=== PATIENT | female | born 1995 | race Caucasian/White ===

== ENCOUNTER 2017-04-26 14:07 | Observation (INO) | payer BC, OTHER ==
[2017-04-26 14:26] VITALS: BMI 24.8
[2017-04-26] MEDS ORDERED: SODIUM CHLORIDE 1,000 ML IV SCH (14:45)
--- NOTE | 2017-04-26 14:47 | PDOC ---
History of Present Illness <Bravo Larry - Last Filed: 04/26/17 14:44> - General History Source: Patient Exam Limitations: No Limitations - History of Present Illness Initial Comments: 04/26/17 15:42 The patient is a 21 year old female, with a significant past medical history of Asthma, COPD, Anxiety, who presents to the emergency department with L arm weakness, L arm numbness and headache since 7 PM yesterday. Patient states her L arm weakness and numbness has been ongoing for the past year. Patient notes these episodes of weakness is intermittent, occurs in 15-30 minute intervals and is relieved with time. However today her weakness has progressively worsened as she is unable to move her L arm. Patient denies any injury or trauma to the arm. Patient also reports bitemporal headache associated with sound sensitivity. Patient denies nausea, vomiting. Patient presents to the ED today for further evaluation. She denies chest pain or dizziness. She denies fever, chills, abdominal pain, diarrhea or constipation. She denies dysuria, frequency, urgency or hematuria. Allergies: shellfish Past surgical history: None Social history: Current everyday smoker PCP: None <Flavia Harrison - Last Filed: 04/26/17 18:10> - General Chief Complaint: CVA/TIA Stated Complaint: LEFT ARM NUMBNESS Time Seen by Provider: 04/26/17 14:37 Past History - Past Medical History Asthma: Yes HTN: Yes Psychiatric Problems: Yes (anxiety) - Psycho/Social/Smoking Cessation Hx Anxiety: No Suicidal Ideation: No Smoking History: Current every day smoker Have you smoked in the past 12 months: Yes Number of Cigarettes Smoked Daily: 5 Information on smoking cessation initiated: No Hx Alcohol Use: No Drug/Substance Use Hx: No Substance Use Type: None <Bravo Larry - Last Filed: 04/26/17 14:44> <Flavia Harrison - Last Filed: 04/26/17 18:10> - Past Medical History Allergies/Adverse Reactions: Allergies Allergy/AdvReac Type Severity Reaction Status Date / Time shellfish derived Allergy Severe Difficulty Verified 04/26/17 14:27 Breathing Home Medications: Ambulatory Orders Metoprolol Succinate [Toprol Xl -] 25 mg PO DAILY #30 tab.sr.24h 08/20/16 Review of Systems - Review of Systems Able to Perform ROS?: Yes Comments:: 04/26/17 15:42 GENERAL/CONSTITUTIONAL: No fever or chills. No weakness. HEAD, EYES, EARS, NOSE AND THROAT: No change in vision. No ear pain or discharge. No sore throat. CARDIOVASCULAR: No chest pain or shortness of breath. RESPIRATORY: No cough, wheezing, or hemoptysis. GASTROINTESTINAL: No nausea, vomiting, diarrhea or constipation. GENITOURINARY: No dysuria, frequency, or change in urination. MUSCULOSKELETAL: No joint or muscle swelling or pain. No neck or back pain. SKIN: No rash NEUROLOGIC: +L arm weakness. +L arm numbness. +headache. No vertigo, loss of consciousness, or change in strength/sensation. ENDOCRINE: No increased thirst. No abnormal weight change. HEMATOLOGIC/LYMPHATIC: No anemia, easy bleeding, or history of blood clots. ALLERGIC/IMMUNOLOGIC: No hives or skin allergy. <Flavia Harrison - Last Filed: 04/26/17 18:10> *Physical Exam - Vital Signs Last Vital Signs Temp Pulse Resp BP Pulse Ox 98.4 F 80 18 160/106 100 04/26/17 14:22 04/26/17 14:22 04/26/17 14:22 04/26/17 14:22 04/26/17 14:22 <Bravo Larry - Last Filed: 04/26/17 14:44> - Vital Signs Last Vital Signs Temp Pulse Resp BP Pulse Ox 98.4 F 80 18 160/106 100 04/26/17 14:22 04/26/17 14:22 04/26/17 14:22 04/26/17 14:22 04/26/17 14:22 - Physical Exam Comments: 04/26/17 15:42 GENERAL: Awake, alert, and fully oriented, in no acute distress. +Patient laughed and giggled throughout entire exam. HEAD: No signs of trauma EYES: PERRLA, EOMI, sclera anicteric, conjunctiva clear ENT: Auricles normal inspection, hearing grossly normal, nares patent, oropharynx clear without exudates. Moist mucosa NECK: Normal ROM, supple, no lymphadenopathy, JVD, or masses LUNGS: Breath sounds equal, clear to auscultation bilaterally. No wheezes, and no crackles HEART: Regular rate and rhythm, normal S1 and S2, no murmurs, rubs or gallops ABDOMEN: Soft, nontender, normoactive bowel sounds. No guarding, no rebound. No masses EXTREMITIES: Normal range of motion, no edema. No clubbing or cyanosis. No cords, erythema, or tenderness NEUROLOGICAL: Cranial nerves II through XII grossly intact. Normal speech, normal gait. Stroke scale is 1. + L arm drift. Moves L arm not coordinated SKIN: Warm, Dry, normal turgor, no rashes or lesions noted. <Flavia Harrison - Last Filed: 04/26/17 18:10> NIH Stroke Scale - Last Known Well Date/Time & Onset Date Last Known Well: 04/25/17 Time Last Known Well: 19:00 - Initial Evaluation Level of consciousness: Alert Ask patient the month and their age: Answers both correctly Ask patient to open & close eyes; make fist and let go: Obeys both correctly Best gaze (horizontal eye movement): Normal Visual field testing: No visual field loss Facial paresis (Show teeth/raise eyebrows/close eyes tight): Normal symmetrical movement Motor Function: Left Arm: Drift Motor Function: Right Arm: Normal (extends arm 90 (or 45) degrees for 10 seconds without drift Motor Function: Left Leg: Normal (extends leg 30 degrees for 5 seconds without drift) Motor Function: Right Leg: Normal (extends leg 30 degrees for 5 seconds without drift) Limb Ataxia: No ataxia Sensory(Use pinprick test arms,legs,trunk,face/side to side): Normal Best language (Describe picture, name items, read sentences): No Aphasia Dysarthria (read several words): Normal articulation Extinction and Inattention: No abnormality - Total Score NIH Stroke Scale Score: 1 <Bravo Larry - Last Filed: 04/26/17 14:44> Critical Care Time/[facility] Note - Medical Decision Making Note: 04/26/17 15:[address] 04/26/17 16:05 Lab measured Beta HCG level: 12 Nurse informed patient of Beta HCG level. Patient subsequently reported she had a planned 3 weeks ago without the consent of her significant other and states this might be the cause of her elevated HCG level. Patient was escorted to CT Scan. 04/26/17 18:02 Dr. Adaem paged via phone number. Patient's case was discussed. Will read patient's MRI report and examine patient during admission. Documentation prepared by Flavia Harrison, acting as front office medical assistant for Bravo Larry MD <Flavia Harrison - Last Filed: 04/26/17 18:10>
[2017-04-26 14:59] LABS: BASOPHIL 0.3 % (0-2.0); EOSINOPHIL 4.3 % (0-4.5); MCH 28.5 pg (25.7-33.7); MCHC 34.3 g/dl (32.0-36.0); MEAN CELL VOLUME 83.1 fl (80-96); MEAN PLT VOLUME 7.9 fl (7.5-11.1); NEUTROPHILS 72.9 % (42.8-82.8); PLATELET COUNT 252 K/MM3 (134-434); WHITE BLOOD COUNT 9.9 K/mm3 (4.0-10.0)
[2017-04-26 15:19] LABS: INR 0.94 (0.82-1.09); PROTHROMBIN TIME (PATIENT) 10.3 SEC (9.98-11.88)
[2017-04-26 15:30] LABS: ALBUMIN 3.8 g/dl (3.4-5.0); ALK PHOS 48 U/L (45-117); ANION GAP 6 (8-16); BILIRUBIN,TOTAL 0.3 mg/dL (0.2-1.0); CALCIUM 8.7 mg/dL (8.5-10.1); CHOLESTEROL 179 mg/dL (50-200); CO2 27 mmol/L (21-32); CPK 93 IU/L (26-192); CREATININE 0.6 mg/dL (0.55-1.02); GLUCOSE,RANDOM 91 mg/dL (74-106); LDL CHOLESTEROL (ONLY SJRH) 88 mg/dL (5-100); SGOT/AST 13 U/L (15-37); SGPT/ALT 22 U/L (12-78); TOT PROT 7.1 g/dl (6.4-8.2); TROPONIN I < 0.02 ng/ml (0.00-0.05)
[2017-04-26 18:02] LABS: URINE APPEARANCE SLCLOUDY; URINE BILIRUBIN NEGATIVE (NEGATIVE); URINE BLOOD NEGATIVE (NEGATIVE); URINE COLOR LTYELLOW; URINE GLUCOSE (UA) NEGATIVE (NEGATIVE); URINE KETONE NEGATIVE (NEGATIVE); URINE LEUK ESTERASE NEGATIVE (NEGATIVE); URINE NITRITE NEGATIVE (NEGATIVE); URINE PROTEIN NEGATIVE (NEGATIVE); URINE UROBILINOGEN NEGATIVE mg/dL (0.2-1.0)
--- NOTE | 2017-04-26 19:47 | PN ---
Teaching Attending Note Name of Resident: Raine Modi ATTENDING PHYSICIAN STATEMENT I saw and evaluated the patient. I reviewed the resident's note and discussed the case with the resident. I agree with the resident's findings and plan as documented. SUBJECTIVE: 21 yo Asthma, COPD, anxiety who presents with L. arm weakness and and L. arm numbness. Also, noted headaches since 7 pm yesterday. Weakness is intermittent in nature. Notes she cannot lift her left hand up. States she has frontal headache. States she has tingling of L. hand, which encompasses all her fingers. Of note pt. has 3 weeks ago. OBJECTIVE: Physical: VS: Vital Signs Period Temp Pulse Resp BP Sys/Paz Pulse Ox Last 24 Hr 98.4 F 80-91 18-18 160-162/99-106 100-100 GEN: NAD, Resting in bed, able to speak full sentences HEENT: NCAT, PERRL, Throat without erythema or exudates CARD: RRR S1, S2 RESP: CTAB ABD: BSX4, NTD to palpation EXT: - C/C/E Neuro: LUE Weakness +1/5 MS LUE, L arm drift, Sensation intact, RUE MS +5/5, CN II-XII intact CBCD WBC 9.9 K/mm3 (4.0-10.0) 04/26/17 14:53 RBC 5.11 M/mm3 (3.60-5.2) 04/26/17 14:53 Hgb 14.6 GM/dL (10.7-15.3) 04/26/17 14:53 Hct 42.4 % (32.4-45.2) 04/26/17 14:53 MCV 83.1 fl (80-96) 04/26/17 14:53 MCHC 34.3 g/dl (32.0-36.0) 04/26/17 14:53 RDW 13.0 % (11.6-15.6) 04/26/17 14:53 Plt Count 252 K/MM3 (134-434) 04/26/17 14:53 MPV 7.9 fl (7.5-11.1) 04/26/17 14:53 CMP Sodium 137 mmol/L (136-145) 04/26/17 14:53 Potassium 3.7 mmol/L (3.5-5.1) 04/26/17 14:53 Chloride 104 mmol/L (98-107) 04/26/17 14:53 Carbon Dioxide 27 mmol/L (21-32) 04/26/17 14:53 Anion Gap 6 (8-16) L 04/26/17 14:53 BUN 8 mg/dL (7-18) 04/26/17 14:53 Creatinine 0.6 mg/dL (0.55-1.02) 04/26/17 14:53 Creat Clearance w eGFR > 60 (>60) 04/26/17 14:53 Random Glucose 91 mg/dL (74-106) 04/26/17 14:53 Calcium 8.7 mg/dL (8.5-10.1) 04/26/17 14:53 Total Bilirubin 0.3 mg/dL (0.2-1.0) D 04/26/17 14:53 AST 13 U/L (15-37) L 04/26/17 14:53 ALT 22 U/L (12-78) 04/26/17 14:53 Alkaline Phosphatase 48 U/L (45-117) 04/26/17 14:53 Total Protein 7.1 g/dl (6.4-8.2) 04/26/17 14:53 Albumin 3.8 g/dl (3.4-5.0) 04/26/17 14:53 CARDIAC ENZYMES Creatine Kinase 93 IU/L (26-192) 04/26/17 14:53 Troponin I < 0.02 ng/ml (0.00-0.05) 04/26/17 14:53 Home Medications Medication Instructions Recorded Metoprolol Succinate [Toprol Xl -] 25 mg PO DAILY #30 tab.sr.24h 08/20/16 CT HEAD/ C- Spine: Lucency in R. Frontal high convexity that may represent an acute/subacute infarct.CT spine negative. BRAIN MRI/MRA- Diffuse severe vasoconstriction of anterior and middle cerebral artery, bilaterally with attenuated flow, also seen and supraclinoid portion of R + L internal carotid A. Transvaginal US: Thickened Endometrium without abnormal vascular flow or intrauterine gestational sac identified. ASSESSMENT AND PLAN: 21 yo F with pmhx of Asthma, HTN, and Anxiety who presents with intermittent L. arm weakness and numbness found to have frontal infarct 1.) CVA - NIHSS 1 - MRI Brain-A- As above - Echo/Carotid - Lipid pane/A1C - TSH/B12/Folate - ASA/Neuro consulted- Reccs. Appreciated - Atorvastatin - MRV- Pending - PT consult - ESR/Crp 2.) Asthma - Nebs prn 3.) HTN - Restart BB 24 hrs after CVA 3.) Hx of - Trend B Hcg - Transvaginal US with no POC 4.) Dvt Ppx - SCDs Place in Obs- tele
--- NOTE | 2017-04-26 20:43 | HP ---
CHIEF COMPLAINT: left arm numbness PCP: none HISTORY OF PRESENT ILLNESS: 21yo F current smoker, s/p planned 3 weeks ago presents c/o worsening left arm numbness since 7pm last night. Pt admits taking Adderall on Thursday. Pt reports history of left arm weakness and numbness, intermittent for a year. Now, the weakness and numbness are constant. Pt tried to sleep it off, but symptoms were still present today. Pt denies injury or trauma to the left arm. Pt also reports a bitemporal headache since arrival in the ER, approximately 3pm. Headache pain rated 5/10. Family history of father with stroke and MA at age 35. Family was not worked up for coagulation disorders. Pt denies vision change or focal weakness in other extremities. ER course was notable for: (1) serum test (+), bHCG 12 (2) head CT (3) ASA 325mg (4) Tylenol 650mg for headache PAST MEDICAL HISTORY: htn, asthma, anxiety PAST SURGICAL HISTORY: 3 weeks ago breast augmentation 1 year ago Social History: Smokin cigarettes/day x 6 yrs Alcohol: occasional Drugs: none Family History: father - stroke and MA age 35, also DM and htn mother - htn Allergies shellfish derived Allergy (Severe, Verified 04/26/17 14:27) Difficulty Breathing HOME MEDICATIONS: Xanax for anxiety Albuterol prn for asthma Home Medications Medication Instructions Recorded Metoprolol Succinate [Toprol Xl -] 25 mg PO DAILY #30 tab.sr.24h 08/20/16 REVIEW OF SYSTEMS CONSTITUTIONAL: Absent: fever, chills, diaphoresis, generalized weakness, malaise HEENT: Absent: difficulty swallowing, throat pain, ear pain, eye pain, visual changes CARDIOVASCULAR: Absent: chest pain, palpitations, irregular heart rate, peripheral edema RESPIRATORY: Absent: shortness of breath, wheezing, stridor GASTROINTESTINAL: Absent: abdominal pain, abdominal distension, nausea, vomiting, diarrhea, constipation, melena, hematochezia GENITOURINARY: Absent: hematuria, flank pain MUSCULOSKELETAL: Absent: myalgia, arthralgia, joint swelling, back pain, neck pain SKIN: Absent: rash, itching, pallor NEUROLOGIC: Present: headache, focal weakness Absent: dizziness, mental status changes PHYSICAL EXAMINATION Vital Signs - 24 hr 04/26/17 04/26/17 14:22 18:38 Temperature 98.4 F Pulse Rate 80 Pulse Rate [ 91 H Apical] Respiratory 18 18 Rate Blood Pressure 160/106 Blood Pressure 162/99 [Right Arm] O2 Sat by Pulse 100 100 Oximetry (%) GENERAL: Awake, alert, and fully oriented, in no acute distress. HEAD: Normal with no signs of trauma. EYES: Pupils equal, round and reactive to light, extraocular movements intact, sclera anicteric, conjunctiva clear. No lid lag. EARS, NOSE, THROAT: Ears normal, nares patent, oropharynx clear without exudates. Moist mucous membranes. NECK: Normal range of motion, supple without lymphadenopathy, JVD, or masses. LUNGS: Breath sounds equal, clear to auscultation bilaterally. No wheezes, and no crackles. No accessory muscle use. HEART: Regular rate and rhythm, normal S1 and S2 without murmur, rub or gallop. ABDOMEN: Soft, nontender, not distended, normoactive bowel sounds, no guarding, no rebound, no masses. MUSCULOSKELETAL: Left arm extension/flexion/abduction muscle strength 4/5, Right arm 5/5. Cristobal LE muscle strength 5/5. UPPER EXTREMITIES: 2+ pulses, warm, well-perfused. No cyanosis. No clubbing. No peripheral edema. LOWER EXTREMITIES: 2+ pulses, warm, well-perfused. No peripheral edema. NEUROLOGICAL: Cranial nerves II-XII grossly intact. Unable to properly assess CN 11; pt was unable to raise shoulder against resistance likely due to muscle weakness. Normal speech. PSYCHIATRIC: Cooperative. Good eye contact. Appropriate mood and affect. SKIN: Warm, dry, normal turgor, no rashes or lesions noted. Laboratory Results - last 24 hr 04/26/17 04/26/17 04/26/17 14:53 14:53 14:53 WBC 9.9 RBC 5.11 Hgb 14.6 Hct 42.4 MCV 83.1 MCH 28.5 MCHC 34.3 RDW 13.0 Plt Count 252 MPV 7.9 Neutrophils % 72.9 Lymphocytes % 16.8 D Monocytes % 5.7 Eosinophils % 4.3 D Basophils % 0.3 INR 0.94 Sodium 137 Potassium 3.7 Chloride 104 Carbon Dioxide 27 Anion Gap 6 L BUN 8 Creatinine 0.6 Creat Clearance w eGFR > 60 Random Glucose 91 Calcium 8.7 Total Bilirubin 0.3 D AST 13 L ALT 22 Alkaline Phosphatase 48 Creatine Kinase 93 Troponin I < 0.02 Total Protein 7.1 Albumin 3.8 Triglycerides 167 H D Cholesterol 179 Total LDL Cholesterol 88 HDL Cholesterol 68 H Beta HCG, Quant Serum , Qual Urine Color Urine Appearance Urine pH Urine Protein Urine Glucose (UA) Urine Ketones Urine Blood Urine Nitrite Urine Bilirubin Urine Urobilinogen Ur Leukocyte Esterase Urine HCG, Qual Blood Type Antibody Screen 04/26/17 04/26/17 04/26/17 14:53 14:53 15:38 WBC RBC Hgb Hct MCV MCH MCHC RDW Plt Count MPV Neutrophils % Lymphocytes % Monocytes % Eosinophils % Basophils % INR Sodium Potassium Chloride Carbon Dioxide Anion Gap BUN Creatinine Creat Clearance w eGFR Random Glucose Calcium Total Bilirubin AST ALT Alkaline Phosphatase Creatine Kinase Troponin I Total Protein Albumin Triglycerides Cholesterol Total LDL Cholesterol HDL Cholesterol Beta HCG, Quant 12.0 Serum , Qual Positive Urine Color Urine Appearance Urine pH Urine Protein Urine Glucose (UA) Urine Ketones Urine Blood Urine Nitrite Urine Bilirubin Urine Urobilinogen Ur Leukocyte Esterase Urine HCG, Qual Cancelled Blood Type O POSITIVE Antibody Screen Negative 04/26/17 17:50 WBC RBC Hgb Hct MCV MCH MCHC RDW Plt Count MPV Neutrophils % Lymphocytes % Monocytes % Eosinophils % Basophils % INR Sodium Potassium Chloride Carbon Dioxide Anion Gap BUN Creatinine Creat Clearance w eGFR Random Glucose Calcium Total Bilirubin AST ALT Alkaline Phosphatase Creatine Kinase Troponin I Total Protein Albumin Triglycerides Cholesterol Total LDL Cholesterol HDL Cholesterol Beta HCG, Quant Serum , Qual Urine Color Ltyellow Urine Appearance Slcloudy Urine pH 7.0 Urine Protein Negative Urine Glucose (UA) Negative Urine Ketones Negative Urine Blood Negative Urine Nitrite Negative Urine Bilirubin Negative Urine Urobilinogen Negative Ur Leukocyte Esterase Negative Urine HCG, Qual Blood Type Antibody Screen IMAGIN04/26/[address] w/o contrast reveals right frontal high convexity that may represent an acute/subacute infarct. 04/26/17 Transvaginal US reveals thickened endometrium without abnormal vascular flow or intrauterine gestational sac. 04/26/17 Brain MRI w/o contrast reveals diffuse severe vasoconstriction on the JACKIE and MCA bilaterally. ASSESSMENT/PLAN: 21yo F current smoker, s/p planned 3 weeks ago, admitted to telemetry for CVA. (1) CVA - likely 2/2 amphetamine use vs vasculitis vs anti-coagulable condition in - permissive htn: SBP<220, DBP<120 - ASA 325mg first dose, followed by ASA 81mg - Tylenol 650mg prn for pain - cont. Lipitor - f/u echo - f/u brain MRI/MRA - f/u carotid doppler - recommend MR venography - hypercoagulable workup as outpatient (2) HTN - hold Metoprolol for permissive htn (3) FEN - Fluids: not indicated - Electrolytes: wnl - Nutrition: regular diet (4) Prophylaxis - cristobal SCDs Visit type - Emergency Visit Emergency Visit: Yes Care time: The patient presented to the Emergency Department on the above date and was hospitalized for further evaluation of their emergent condition. - New Patient This patient is new to me today: Yes Date on this admission: 04/27/17 - Critical Care Critical Care patient: No
--- NOTE | 2017-04-26 20:48 | PDOC ---
*Physical Exam - Vital Signs Last Vital Signs Temp Pulse Resp BP Pulse Ox 98.4 F 91 H 18 162/99 100 04/26/17 14:22 04/26/17 18:38 04/26/17 18:38 04/26/17 18:38 04/26/17 18:38 ED Treatment Course - LABORATORY CBC & Chemistry Diagram: 04/26/17 14:53 04/26/17 14:53 - ADDITIONAL ORDERS Additional order review: Laboratory Results 04/26/17 04/26/17 04/26/17 17:50 15:38 14:53 INR Sodium Potassium Chloride Carbon Dioxide Anion Gap BUN Creatinine Creat Clearance w eGFR Random Glucose Calcium Total Bilirubin AST ALT Alkaline Phosphatase Creatine Kinase Troponin I Total Protein Albumin Triglycerides Cholesterol Total LDL Cholesterol HDL Cholesterol Beta HCG, Quant 12.0 Serum , Qual Positive Urine Color Ltyellow Urine Appearance Slcloudy Urine pH 7.0 Urine Protein Negative Urine Glucose (UA) Negative Urine Ketones Negative Urine Blood Negative Urine Nitrite Negative Urine Bilirubin Negative Urine Urobilinogen Negative Ur Leukocyte Esterase Negative Urine HCG, Qual Cancelled Blood Type Antibody Screen 04/26/17 04/26/17 04/26/17 14:53 14:53 14:53 INR 0.94 Sodium 137 Potassium 3.7 Chloride 104 Carbon Dioxide 27 Anion Gap 6 L BUN 8 Creatinine 0.6 Creat Clearance w eGFR > 60 Random Glucose 91 Calcium 8.7 Total Bilirubin 0.3 D AST 13 L ALT 22 Alkaline Phosphatase 48 Creatine Kinase 93 Troponin I < 0.02 Total Protein 7.1 Albumin 3.8 Triglycerides 167 H D Cholesterol 179 Total LDL Cholesterol 88 HDL Cholesterol 68 H Beta HCG, Quant Serum , Qual Urine Color Urine Appearance Urine pH Urine Protein Urine Glucose (UA) Urine Ketones Urine Blood Urine Nitrite Urine Bilirubin Urine Urobilinogen Ur Leukocyte Esterase Urine HCG, Qual Blood Type O POSITIVE Antibody Screen Negative 04/26/17 14:53 RBC 5.11 MCV 83.1 MCHC 34.3 RDW 13.0 MPV 7.9 Neutrophils % 72.9 Lymphocytes % 16.8 D Monocytes % 5.7 Eosinophils % 4.3 D Basophils % 0.3 - RADIOLOGY Radiology Studies Ordered: Category Date Time Status BRAIN MRA W/O CONTRAST [MRI] Routine MRI 04/26/17 20:31 Taken Medical Decision Making - Medical Decision Making 04/26/17 20:[address] Larry, briefly, pt 2 months post p/w 24hrs of LUE weakness. MRI brain with multiple acute and subacute strokes. Called Dr. Bernardo (neuro) who recommends ASA 325 and MRA/MRV. Studies ordered. Pt admitted to hospitalist with whom I communicated these findings (Dung, PGY2) *DC/Admit/Observation/Transfer Diagnosis at time of Disposition: Weakness of upper extremity - Attestations Physician Attestion: 04/26/17 20:47 I, Dr. Coty Stevenson MD, attest that this document has been prepared under my direction and personally reviewed by me in its entirety. I further attest, that it accurately reflects all work, treatment, procedures and medical decision -making performed by me.
[2017-04-26] MEDS ORDERED: ASPIRIN 325 MG ENTERIC COATED TABLET (FP) ONE (20:57)
[2017-04-26] MEDS ORDERED: METOPROLOL SUCCINATE 50 MG TAB.SR.24H (FP) ONE (20:57)
[2017-04-26] MEDS ORDERED: ACETAMINOPHEN 325 MG TABLET (FP) ONE (20:57)
[2017-04-26] MEDS: ACETAMINOPHEN 325 MG TABLET (FP) PO PRN (21:00)
[2017-04-26] MEDS: ASPIRIN 325 MG ENTERIC COATED TABLET (FP) PO SCH (21:00)
[2017-04-26] MEDS ORDERED: METOPROLOL SUCCINATE 25 MG TAB.SR.24H (FP) PO SCH (21:00)
[2017-04-26] MEDS ORDERED: ATORVASTATIN CA 80 MG TABLET (FP) PO ONE (21:30)
--- NOTE | 2017-04-26 21:52 | HP ---
CHIEF COMPLAINT: L arm weakness PCP: None HISTORY OF PRESENT ILLNESS: 21 yo F h/o current daily smoker and s/p planned 3 weeks ago presented to the ED with worsening L arm weakness x 1 day. The weakness has persisted for months and the worsening symptom prompted the patient to come in the ED. Last night at 7pm, she was unable to move her L arm at all and felt pins and needles. Denies chest pain, palpitation, sob, vision change, facial droop, focal weakness in other extremities, paresthesia, urinary or bowel symptoms. ER course was notable for: (1) CT shows acute/subacute infarct in R frontal lobe (2) MRI/MRA done (3) ASA 325 and Lipitor 80 given Recent Travel: Denies PAST MEDICAL HISTORY: HTN PAST SURGICAL HISTORY: Breast augmentation, Social History: Smokin cig/day x 6 years Alcohol: social Drugs: Denies Family History: Father had AR and stroke at 35 yo; mother has diabetics and HTN Allergies shellfish derived Allergy (Severe, Verified 04/26/17 14:27) Difficulty Breathing HOME MEDICATIONS: Home Medications Medication Instructions Recorded Metoprolol Succinate [Toprol Xl -] 25 mg PO DAILY #30 tab.sr.24h 08/20/16 REVIEW OF SYSTEMS CONSTITUTIONAL: Absent: fever, chills, diaphoresis, generalized weakness, malaise, loss of appetite, weight change HEENT: Absent: rhinorrhea, nasal congestion, throat pain, throat swelling, difficulty swallowing, mouth swelling, ear pain, eye pain, visual changes CARDIOVASCULAR: Absent: chest pain, syncope, palpitations, irregular heart rate, lightheadedness , peripheral edema RESPIRATORY: Absent: cough, shortness of breath, dyspnea with exertion, orthopnea, wheezing, stridor, hemoptysis GASTROINTESTINAL: Absent: abdominal pain, abdominal distension, nausea, vomiting, diarrhea, constipation, melena, hematochezia GENITOURINARY: Absent: dysuria, frequency, urgency, hesitancy, hematuria, flank pain, genital pain MUSCULOSKELETAL: Absent: myalgia, arthralgia, joint swelling, back pain, neck pain SKIN: Absent: rash, itching, pallor HEMATOLOGIC/IMMUNOLOGIC: Absent: easy bleeding, easy bruising, lymphadenopathy, frequent infections ENDOCRINE: Absent: unexplained weight gain, unexplained weight loss, heat intolerance, cold intolerance NEUROLOGIC: headache, focal weakness Absent: paresthesias, dizziness, unsteady gait, seizure, mental status changes, bladder or bowel incontinence PSYCHIATRIC: Absent: anxiety, depression, suicidal or homicidal ideation, hallucinations. PHYSICAL EXAMINATION Last Vital Signs Temp Pulse Resp BP Pulse Ox 98.4 F 91 H 18 162/99 100 04/26/17 14:22 04/26/17 18:38 04/26/17 18:38 04/26/17 18:38 04/26/17 18:38 GENERAL: AAOx3, in no acute distress. EYES: Pupils equal, round and reactive to light, extraocular movements intact, sclera anicteric, conjunctiva clear. LUNGS: CTAB HEART: RRR, normal S1 and S2 without murmur, rub or gallop. ABDOMEN: Soft, nontender, not distended, normoactive bowel sounds, no guarding, no rebound, no masses. EXTREMITIES: No peripheral edema. NEUROLOGICAL: Cranial nerves II-XII intact. Normal speech. Normal gait. LUE strength 1/5, RUE 5/5, bilateral LE 5/5, sensation intact bilaterally CBCD WBC 9.9 K/mm3 (4.0-10.0) 04/26/17 14:53 RBC 5.11 M/mm3 (3.60-5.2) 04/26/17 14:53 Hgb 14.6 GM/dL (10.7-15.3) 04/26/17 14:53 Hct 42.4 % (32.4-45.2) 04/26/17 14:53 MCV 83.1 fl (80-96) 04/26/17 14:53 MCHC 34.3 g/dl (32.0-36.0) 04/26/17 14:53 RDW 13.0 % (11.6-15.6) 04/26/17 14:53 Plt Count 252 K/MM3 (134-434) 04/26/17 14:53 MPV 7.9 fl (7.5-11.1) 04/26/17 14:53 CMP Sodium 137 mmol/L (136-145) 04/26/17 14:53 Potassium 3.7 mmol/L (3.5-5.1) 04/26/17 14:53 Chloride 104 mmol/L (98-107) 04/26/17 14:53 Carbon Dioxide 27 mmol/L (21-32) 04/26/17 14:53 Anion Gap 6 (8-16) L 04/26/17 14:53 BUN 8 mg/dL (7-18) 04/26/17 14:53 Creatinine 0.6 mg/dL (0.55-1.02) 04/26/17 14:53 Creat Clearance w eGFR > 60 (>60) 04/26/17 14:53 Calcium 8.7 mg/dL (8.5-10.1) 04/26/17 14:53 Total Bilirubin 0.3 mg/dL (0.2-1.0) D 04/26/17 14:53 AST 13 U/L (15-37) L 04/26/17 14:53 ALT 22 U/L (12-78) 04/26/17 14:53 Alkaline Phosphatase 48 U/L (45-117) 04/26/17 14:53 Total Protein 7.1 g/dl (6.4-8.2) 04/26/17 14:53 Albumin 3.8 g/dl (3.4-5.0) 04/26/17 14:[address] head on 04/26: acute/subacute infarct in R frontal lob MRI/MRA on 04/26: pending Carotid doppler on 04/26: pending ECHO: not performed yet ASSESSMENT/PLAN: 21 yo F h/o current daily smoker and s/p planned 3 weeks ago admitted to telemetry for observation pending stroke workup. CVA, Acute on multiple chronic infarcts - Likely 2/2 hypercoagulable state in , cannot r/o congenital bleeding disorder - Permissive HTN: SBP<220;DBP<120 - Received asa 325mg in ED, cont. 81mg daily - Cont. lipitor 80mg daily - LDL wnl - f/u a1c, TSH, ECHO, Carotid doppler, MRI/A official reports - PT - Hypercoagulability workup as outpatient HTN - Hold metoprolol for permissive HTN FEN - No IVF indicated - Normal lytes - Regular diet Prophylaxis - SCDs Dispo - Pending stroke workup Visit type - Emergency Visit Emergency Visit: Yes Care time: The patient presented to the Emergency Department on the above date and was hospitalized for further evaluation of their emergent condition. - New Patient This patient is new to me today: Yes Date on this admission: 04/26/17 - Critical Care Critical Care patient: No
[2017-04-26] MEDS ORDERED: ATORVASTATIN CA 80 MG TABLET (FP) PO SCH ×2 (22:00)
[2017-04-27 03:03] VITALS: TEMP 98.2
[2017-04-27] MEDS: ACETAMINOPHEN 325 MG TABLET (FP) PO PRN ×2 (03:10→16:50)
[2017-04-27] MEDS ORDERED: ACETAMINOPHEN 325 MG TABLET (FP) ONE ×2 (03:24→15:29)
[2017-04-27 07:16] LABS: INR 0.91 (0.82-1.09)
[2017-04-27 07:19] LABS: ACTIVATED PTT 30.8 SECONDS (26.9-34.4)
--- NOTE | 2017-04-27 09:04 | PN ---
Teaching Attending Note Name of Resident: Darnell Mancilla ATTENDING PHYSICIAN STATEMENT I saw and evaluated the patient. I reviewed the resident's note and discussed the case with the resident. I agree with the resident's findings and plan as documented. SUBJECTIVE: Patient is c/o having LUE numbness and weakness. OBJECTIVE: Vital Signs Temperature 98.2 F 04/27/17 03:01 Pulse Rate 79 04/27/17 08:49 Respiratory Rate 18 04/27/17 08:49 Blood Pressure 157/114 04/27/17 08:49 O2 Sat by Pulse Oximetry (%) 100 04/27/17 08:49 CBCD WBC 9.9 K/mm3 (4.0-10.0) 04/26/17 14:53 RBC 5.11 M/mm3 (3.60-5.2) 04/26/17 14:53 Hgb 14.6 GM/dL (10.7-15.3) 04/26/17 14:53 Hct 42.4 % (32.4-45.2) 04/26/17 14:53 MCV 83.1 fl (80-96) 04/26/17 14:53 MCHC 34.3 g/dl (32.0-36.0) 04/26/17 14:53 RDW 13.0 % (11.6-15.6) 04/26/17 14:53 Plt Count 252 K/MM3 (134-434) 04/26/17 14:53 MPV 7.9 fl (7.5-11.1) 04/26/17 14:53 CMP Sodium 137 mmol/L (136-145) 04/26/17 14:53 Potassium 3.7 mmol/L (3.5-5.1) 04/26/17 14:53 Chloride 104 mmol/L (98-107) 04/26/17 14:53 Carbon Dioxide 27 mmol/L (21-32) 04/26/17 14:53 Anion Gap 6 (8-16) L 04/26/17 14:53 BUN 8 mg/dL (7-18) 04/26/17 14:53 Creatinine 0.6 mg/dL (0.55-1.02) 04/26/17 14:53 Creat Clearance w eGFR > 60 (>60) 04/26/17 14:53 Random Glucose 91 mg/dL (74-106) 04/26/17 14:53 Calcium 8.7 mg/dL (8.5-10.1) 04/26/17 14:53 Total Bilirubin 0.3 mg/dL (0.2-1.0) D 04/26/17 14:53 AST 13 U/L (15-37) L 04/26/17 14:53 ALT 22 U/L (12-78) 04/26/17 14:53 Alkaline Phosphatase 48 U/L (45-117) 04/26/17 14:53 Total Protein 7.1 g/dl (6.4-8.2) 04/26/17 14:53 Albumin 3.8 g/dl (3.4-5.0) 04/26/17 14:53 CARDIAC ENZYMES Creatine Kinase 93 IU/L (26-192) 04/26/17 14:53 Troponin I < 0.02 ng/ml (0.00-0.05) 04/26/17 14:53 Current Medications Generic Name Dose Route Start Last Admin Trade Name Alex PRN Reason Stop Dose Admin Acetaminophen 650 mg 04/26/17 19:42 04/27/17 03:10 Tylenol - PO 650 mg Q6H PRN Administration FEVER OR PAIN Aspirin 325 mg 04/26/17 20:45 04/26/17 21:00 Ecotrin - PO 325 mg DAILY FELIPA Administration Atorvastatin Calcium 80 mg 04/26/17 22:00 04/26/17 22:21 Lipitor - PO Not Given HS FELIPA Metoprolol Succinate 25 mg 04/26/17 21:00 04/26/17 21:00 Toprol Xl - PO 25 mg DAILY FELIPA Administration Home Medications Medication Instructions Recorded Metoprolol Succinate [Toprol Xl -] 25 mg PO DAILY #30 tab.sr.24h 08/20/16 PE: LUE numbness. ASSESSMENT AND PLAN: 21yo F current smoker, s/p planned 3 weeks ago presents c/o worsening left arm numbness since 7pm last night. #Acute CVA Discussed with Dr. Pineda would like the patient to be transferred to [facility] for further evaluation. Aspirin, Lipitor, f/u echo hypercoagulable workup as outpatient. Neuro consult apppriated. Reviewed the MRA and MRI # HTN Uncontrolled on Metoprolol continue Prophylaxis:l SCDs
[2017-04-27] MEDS ORDERED: ASPIRIN COATED 81 MG TABLET.EC PO SCH (10:00)
[2017-04-27] MEDS ORDERED: METOPROLOL SUCCINATE 25 MG TAB.SR.24H (FP) PO SCH (10:00)
--- NOTE | 2017-04-27 10:26 | CON.NEURO ---
Consult - History of Present Illness History of Present Illness: c left arm weakness and numbness for three days prior to hospital stay HPI 21 year old female history of came to hospital as she has difficulty moving her left arm for two or three days. She is very inconsistent with her story and changes many time. She is not forthcoming with story either. She was positive for , initially she denied and later she admitted that she had Termination of three week ago. She takes adderall and she does cocaine frequently. She refused to give her uring during this hospital stay. She denies any singificant headache, dysphagia , diplopia or weakness in leg or similar symnptoms on right side. She had mri of brain showed acute and subacute stroke on right side and old subacute stroke on left frontal lobe. She has very minimal flow in bilateral mca and carmel. Patient has been clinically stable and her nih score is 2 and she was given dose of statin and aspirin. - Alcohol/Substance Use Hx Alcohol Use: No - Smoking History Smoking history: Current every day smoker Have you smoked in the past 12 months: Yes Aproximately how many cigarettes per day: 5 Home Medications - Allergies Allergies/Adverse Reactions: Allergies Allergy/AdvReac Type Severity Reaction Status Date / Time shellfish derived Allergy Severe Difficulty Verified 04/26/17 14:27 Breathing - Home Medications Home Medications: Ambulatory Orders Metoprolol Succinate [Toprol Xl -] 25 mg PO DAILY #30 tab.sr.24h 08/20/16 Physical Exam-Neuro Vital Signs: Vital Signs Temperature 98.2 F 04/27/17 03:01 Pulse Rate 79 04/27/17 08:49 Respiratory Rate 18 04/27/17 08:49 Blood Pressure 157/114 04/27/17 08:49 O2 Sat by Pulse Oximetry (%) 100 04/27/17 08:49 Labs: INR, PTT INR 0.91 (0.82-1.09) 04/27/17 05:58 NIH Stroke Scale - Total Score NIH Stroke Scale Score: 0 Imaging - Results Cat Scan: Image Reviewed MRI: Image Reviewed Assessment/Plan cc left arm weakness and numbness for three days prior to hospital stay HPI 21 year old female history of came to hospital as she has difficulty moving her left arm for two or three days. She is very inconsistent with her story and changes many time. She is not forthcoming with story either. She was positive for , initially she denied and later she admitted that she had Termination of three week ago. She takes adderall and she does cocaine frequently. She refused to give her uring during this hospital stay. She denies any singificant headache, dysphagia , diplopia or weakness in leg or similar symnptoms on right side. She had mri of brain showed acute and subacute stroke on right side and old subacute stroke on left frontal lobe. She has very minimal flow in bilateral mca and carmel. Patient has been clinically stable and her nih score is 2 and she was given dose of statin and aspirin. Medical History of Anxiety, asthma, htn ( takes metorprolol) Surgery she had abnortion 3 weeks ago, breast augmentation one year ago Social history she smokes , alcohol socially Family Hisotyr Stroke and mi at age of 35 Allergies shellfish derived Allergy (Severe, Verified 04/26/17 14:27) Difficulty Breathing HOME MEDICATIONS: Xanax for anxiety Albuterol prn for asthma Neurological Examination Alert oriented x 3, able to repeat and follow command eomi, and ? left facial palsy , pupils are reactive tehre is diminished sensation on left upper extremity and there is left arm weakness of grade 3 she has hand compensation vice president weakness, shoulder abduction , elbow flexion and extension is grade 3 right upper and both lower extremity is normal able to swallo ct reviweed mri of brain and mra of brain reviewed -- there is bihemispheric stroke and she ahs no flow in bilateral mca and carmel Assessment-- Large right hemispheric stroke( right mca) and also old 9 subacute ) left hemispheric stroke. 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 endovacular intervention, recommend to consider transfer to [facility], [place]. Spoke to hospitalist and would iniitate the process Neurocheck Thanks for consult Lalo Adame MD Neurology Attending
[2017-04-27] MEDS ORDERED: methylPREDNISolone NA SUCC 1000 MG/8 ML VIAL IVPB ONE (10:50)
[2017-04-27 11:08] LABS: URINE MARIJUANA THC NEGATIVE ng/ml (CUTOFF=50)
[2017-04-27] MEDS: ASPIRIN 325 MG ENTERIC COATED TABLET (FP) PO SCH (11:16)
[2017-04-27] MEDS ORDERED: ASPIRIN 325 MG ENTERIC COATED TABLET (FP) ONE (11:16)
--- NOTE | 2017-04-27 13:37 | EKG ---
Test Reason : Blood Pressure : / mmHG Vent. Rate : 066 BPM Atrial Rate : 066 BPM P-R Int : 146 ms QRS Dur : 086 ms QT Int : 402 ms P-R-T Axes : 021 052 041 degrees QTc Int : 421 ms NORMAL SINUS RHYTHM WITH SINUS ARRHYTHMIA NORMAL ECG NO PREVIOUS ECGS AVAILABLE Confirmed by KAMILA KEITH MD ([id number]) on 04/27/2017 1:37:30 PM Referred By: Confirmed By:KAMILA KEITH MD
[2017-04-27 18:33] VITALS: BP 149/96; PULSE 112
--- NOTE | 2017-04-27 18:41 | DS ---
Physical Exam: SUBJECTIVE: Patient seen and examined this AM. The patient still endorses LUE weakness, states it has not improved. She was out of the tPA window and has a large infarct. She has no new neurological symptoms. No CP, no SOB, no fevers, no chills. OBJECTIVE: Vital Signs Period Temp Pulse Resp BP Sys/Paz Pulse Ox Last 24 Hr 98.2 F 63-90 16-18 144-169/94-114 96-100 PHYSICAL EXAM GENERAL: AAO x3, in NAD HEENT: Dilated pupils, equal and reactive, EOMi, no LAD LUNG: CTABL, no labored breathing CV: S1, S2, RRR, no murmurs ABD: Soft, NT, ND, normoactive BS EXT: 2+ pulses, warm, no edema NEURO: Pt is able to follow commands CN 2-10 + 12 were grossly intact, pt was unable to shoulder shrug on L Sensation - diminished in L upper extremity MSK Left Upper: Handgrip (2/5), Forearm (3/5), Shoulder (3/5) Right Upper: Handgrip (5/5), Forearm (5/5), Shoulder (5/5) Left Lower: Thigh (4/5), Legs (4/5), Feet (4/5) Right Lower: Thigh (5/5), Legs (5/5), Feet (5/5) Reflexes 3+ reflexes on L side 2+ reflexes on R side LABS Laboratory Results - last 24 hr 04/27/17 04/27/17 04/27/17 05:58 05:58 05:58 ESR INR 0.91 PTT (Actin FS) 30.8 Hemoglobin A1c % 5.4 C-Reactive Protein TSH 1.67 D Opiates Screen Methadone Screen Barbiturate Screen Phencyclidine Screen Ur Amphetamines Screen MDMA (Ecstasy) Screen Benzodiazepines Screen Cocaine Screen U Marijuana (THC) Screen 04/27/17 04/27/17 04/27/17 05:58 05:58 10:00 ESR 2 INR PTT (Actin FS) Hemoglobin A1c % C-Reactive Protein 0.5 H TSH Opiates Screen Negative Methadone Screen Negative Barbiturate Screen Negative Phencyclidine Screen Negative Ur Amphetamines Screen Negative MDMA (Ecstasy) Screen Negative Benzodiazepines Screen Negative Cocaine Screen Negative U Marijuana (THC) Screen Negative IMAGING: CT head w/o contrast - Lucency in the right frontal high convexity that may represent an acute/subacute infarct. MRI brain w/o contrast - - Multiple right supratentorial acute/subacute infarcts with the largest area involving the right frontal lobe, superiorly as well as involving anterior aspect of the right parietal lobe. - Other scattered acute/subacute lacunar infarcts are present in the right frontal lobe. - Likely a small focal acute/subacute subcortical infarct in the left frontal lobe, superiorly with a larger area of adjacent cortical and subcortical increased T2 signal intensity, anteriorly that may represent an area of late subacute infarct. - Signal intensity in the left sigmoid sinus and lateral aspect of the left transverse sinus suggestive of slow flow/thrombosis. MRA brain - - Diffuse severe vasoconstriction of the anterior and middle cerebral artery, bilaterally with attenuated flow - A right and left posterior communicating artery are present with prominent flow seen in both posterior cerebral arteries. Carotid U/S - negative HOSPITAL COURSE: Date of Admission:04/26/17 Date of Discharge: 04/27/17 Pt is a 21yo F who presented with L arm weakness and numbness for three days prior to admission. She was found to have acute/subacute R sided large stroke and multiple chronic infarcts with diffusely diminished arterial flow bilaterally. # Acute/Subacute CVA - The images taken on admission showed an acute and subacute CVA in the R frontal/parietal lobe with old subacute stroke in the L frontal lobe. The MRA showed bilateral MCA and JACKIE decreased flow, likely from vasospasm. She enorses aderall usage, prior use of cocaine (last use was 1 month ago). The patient is clinically stable, with NIHSS of 2, was given loading dose of ASA and statin in the ED. We discussed with the Neurologist, and did not start her on anticoagulation due to the high risk of bleed. She was given a dose of IV solumedrol 1g and put on scheduled Nimodipine 30mg Q4. Given that the patient may develop malignant cerebral edema, and may require endovascular intervention , we will transfer her to [facility] for HLOC. We spoke with the Neurologist Dr. Odette Woods who will be the accepting physician, and her Neurology fellow Dr. Lin Marino. They agree to the transfer, and are making a bed available for the patient. # HTN - We continued the patient's home Metoprolol Succinate 25mg PO QD and added Nimodipine 30mg PO Q4. We will monitor her blood pressure, allowing for permissive hypertension due to vasospasm. The patient is aware of the hospital course and agrees with the plan and transfer to [facility]. Minutes to complete discharge: 55 Discharge Summary Reason For Visit: WEAKNESS OF UPPER EXTREMITY Condition: Stable - Instructions Diet, Activity, Other Instructions: - You are being transferred to [facility] for HLOC - Please continue the Nimodipine and Metoprolol for your blood pressure - Please continue your aspirin 81mg daily Disposition: TRANSFER ACUTE CARE/OTHER HOSP - Home Medications Comprehensive Discharge Medication List: Ambulatory Orders Metoprolol Succinate [Toprol Xl -] 25 mg PO DAILY #30 tab.sr.24h 08/20/16 This patient is new to me today: No Emergency Visit: No Critical Care patient: No - Discharge Referral Referred to [facility] No
== END 2017-04-28 07:33 | disposition short-term general hospital (02) ==
LOC: JER 14:07 → JERBED 22:43
PROVIDERS: ADMIT Internal Medicine; ATTEND Internal Medicine
PROC: 3E0337Z Introduction of Electrolytic and Water Balance Substance into Peripheral Vein, Percutaneous Approach (ICD-10-PCS; principal; 2017-04-26)
PROC: 3E033GC Introduction of Other Therapeutic Substance into Peripheral Vein, Percutaneous Approach (ICD-10-PCS; 2017-04-26)
DX: I63.9 Cerebral infarction, unspecified (principal); I10 Essential (primary) hypertension; J45.909 Unspecified asthma, uncomplicated; J44.9 Chronic obstructive pulmonary disease, unspecified; F41.9 Anxiety disorder, unspecified; F17.210 Nicotine dependence, cigarettes, uncomplicated; Z91.013 Allergy to seafood
CPT/HCPCS: 36415; 70450-TC; 70544-TC; 70551-TC; 71010-TC; 72125-TC; 76817-TC; 80053; 80307; 81003; 82465; 83036; 83718; 83721; 84443; 84478; 84484; 84702; 84703; 85025; 85610; 85651; 85730; 86140; 86850; 86900; 86901; 93005; 93010; 93306-TC; 93880-TC; 99285-25; G0378

== ENCOUNTER 2017-10-08 21:07 | Emergency (ER) | payer OTHER ==
--- NOTE | 2017-10-08 21:26 | PDOC ---
Rapid Medical Evaluation Time Seen by Provider: 10/08/17 21:22 Medical Evaluation: Allergies Allergy/AdvReac Type Severity Reaction Status Date / Time shellfish derived Allergy Severe Difficulty Verified 04/26/17 14:27 Breathing 10/08/17 21:22 I have performed a brief in person evaluation of this patient. The patient presents with chief complaint of : tampon lost in vagina. history of CVA with left arm weakness Pertinent PE findings: none I have ordered the following: none The patient will proceed to the ER for further evaluation. Discharge Disposition - Referrals Referrals: Gilberto Perkins MD [Primary Care Provider] - - Patient Instructions - Post Discharge Activity
[2017-10-08 21:28] VITALS: BP 151/100; PULSE 82; TEMP 98.6; BMI 21.4
--- NOTE | 2017-10-09 00:41 | PDOC ---
Attending Attestation - Resident Resident Name: Daisha Green - ED Attending Attestation I have performed the following: I have examined & evaluated the patient, The case was reviewed & discussed with the resident, I agree w/resident's findings & plan, Exceptions are as noted - HPI HPI: 10/09/17 00:46 I did not see this paitent - Physicial Exam PE: 10/09/17 00:46 I did not see this patient - Medical Decision Making 10/09/17 00:41 I, Dr. Annie Strong, DO, attest that this document has been prepared under my direction and personally reviewed by me in its entirety. I further attest, that it accurately reflects all work, treatment, procedures and medical decision -making performed by me. 10/09/17 00:45 pt called to the room - but was not in the ED. Pt was have left after RME i did not see this patient. she eloped from the ED Discharge Disposition - Discharge Dispostion Disposition: ELOPED - Referrals Referrals: Gilberto Perkins MD [Primary Care Provider] - - Patient Instructions - Post Discharge Activity
== END 2017-10-09 00:45 | disposition left against medical advice (07) ==
LOC: JERFT 21:07 → JER 21:07
DX: T19.2XXA Foreign body in vulva and vagina, initial encounter (principal)
CPT/HCPCS: 99281-25

== ENCOUNTER 2018-06-15 14:21 | Emergency (ER) | payer OTHER ==
--- NOTE | 2018-06-15 14:27 | PDOC ---
Rapid Medical Evaluation Time Seen by Provider: 06/15/18 14:24 Medical Evaluation: Allergies Allergy/AdvReac Type Severity Reaction Status Date / Time shellfish derived Allergy Severe Difficulty Verified 04/26/17 14:27 Breathing 06/15/18 14:24 Pt presents to the ED after falling two days ago. States she was dehydrated then and she fell. States she has neck and upper back pain. Took ibuprofen 400mg at 11 with little relief of her pain. Exam: Normal gait, NAD Orders: Nothing Pt to proceed to ED for further evaluation Discharge Disposition - Diagnosis Neck pain - Referrals - Patient Instructions - Post Discharge Activity
[2018-06-15 14:29] VITALS: BP 159/112; PULSE 81; TEMP 98.5; BMI 24.5
--- NOTE | 2018-06-15 15:00 | PDOC ---
History of Present Illness - General Chief Complaint: Injury Stated Complaint: FALL 2 DAYS AGO/ Time Seen by Provider: 06/15/18 14:24 - History of Present Illness Initial Comments: 06/15/18 14:57 22-year-old female with a past medical history significant for CVA takes daily aspirin. Presents for evaluation of left-sided neck pain after a fall 3 days ago. She has no radicular symptoms. She has left-sided hemiparesis from a prior CVA. Past History - Past Medical History Allergies/Adverse Reactions: Allergies Allergy/AdvReac Type Severity Reaction Status Date / Time shellfish derived Allergy Severe Difficulty Verified 06/15/18 14:24 Breathing Home Medications: Ambulatory Orders Aspirin [[employer] Aspirin] 81 mg PO DAILY #30 tablet. 04/28/17 Cyclobenzaprine HCl [Flexeril 10 mg] 10 mg PO HS PRN #10 tablet 06/15/18 Ibuprofen [Motrin -] 400 mg PO QID 06/15/18 Asthma: Yes CVA: Yes (2017) COPD: No HTN: Yes Psychiatric Problems: Yes (anxiety) Other medical history: kristel humphries - Suicide/Smoking/Psychosocial Hx Smoking History: Current some day smoker Have you smoked in the past 12 months: Yes Number of Cigarettes Smoked Daily: 1 Information on smoking cessation initiated: No 'Breaking Loose' booklet given: 04/27/17 Hx Alcohol Use: No Drug/Substance Use Hx: No Substance Use Type: None Review of Systems - Review of Systems Musculoskeletal: Yes: Neck Pain All Other Systems: Reviewed and Negative *Physical Exam - Vital Signs Last Vital Signs Temp Pulse Resp BP Pulse Ox 98.5 F 81 16 159/112 H 100 06/15/18 14:25 06/15/18 14:25 06/15/18 14:25 06/15/18 14:25 06/15/18 14:25 - Physical Exam Comments: HEAD: NC/AT EYES: Conjuntiva clear Ears: Canals and TM's normal NOSE: No d/c THROAT: Moist mucous membrances, oral pharanx clear, uvula midline NECK: Supple without adenopathy CARDIAC: S1 S2 LUNGS: CTA Full and Equal breath sounds ABDOMEN: Soft NT ND MS: Full ROM in all joints without edema NEUROLOGIC: No gross sensory or motor deficits, NVID SKIN: Normal color and temperature no lesions or rashes Cervical spine skin color and temperature are normal. There is no midline tenderness. Range of motion is slightly decreased secondary to pain. There is mild left-sided paracervical and trapezial spasm. No right-sided spasm or tenderness. Negative Spurling maneuver. She has 5 out of 5 strength in the right upper extremity. Left upper extremity is the side with the hemiparesis from the prior CVA. Right side has no gross sensorimotor deficits. 06/15/18 14:58 Medical Decision Making - Medical Decision Making Cervical strain, I will treat her with Flexeril and spine surgery follow-up. 06/15/18 14:58 *DC/Admit/Observation/Transfer Diagnosis at time of Disposition: Neck pain, Cervical strain - Discharge Dispostion Disposition: HOME Condition at time of disposition: Stable Decision to Admit order: No - Prescriptions Prescriptions: Cyclobenzaprine HCl [Flexeril 10 mg] 10 mg PO HS PRN #10 tablet PRN Reason: Muscle Spasms - Referrals Referrals: Hunter Vu MD [Staff Physician] - - Patient Instructions Printed Discharge Instructions: Whiplash Additional Instructions: Please take the muscle relaxer prior to bedtime. It will make you sleepy. Return to the emergency room should her symptoms worsen or go unresolved. Please follow-up with orthopedic spine surgery in 2-3 days for further evaluation and treatment options. - Post Discharge Activity
== END 2018-06-15 15:11 | disposition home or self-care (01) ==
LOC: JERFT 14:21
DX: S16.1XXA Strain of muscle, fascia and tendon at neck level, initial encounter (principal); W18.39XA Other fall on same level, initial encounter; Y93.89 Activity, other specified; Y92.89 Other specified places as the place of occurrence of the external cause; Y99.8 Other external cause status; I10 Essential (primary) hypertension; J45.909 Unspecified asthma, uncomplicated; I69.854 Hemiplegia and hemiparesis following other cerebrovascular disease affecting left non-dominant side
CPT/HCPCS: 99281-25

== ENCOUNTER 2019-08-15 02:10 | Emergency (ER) | payer OTHER ==
--- NOTE | 2019-08-15 02:38 | PDOC ---
Attending Attestation - Resident Resident Name: Naeem Allison - ED Attending Attestation I have performed the following: I have examined & evaluated the patient, The case was reviewed & discussed with the resident, I agree w/resident's findings & plan - HPI HPI: 08/15/19 02:58 Pt punched a mirror. Now with hand laceration and swelling and pain. - Physicial Exam PE: 08/15/19 02:59 Agree with resident exam - Medical Decision Making 08/15/19 02:59 XR pending Pt will get a tdap and she will be placed on abx and she will follow with hand surgery
--- NOTE | 2019-08-15 02:40 | PDOC ---
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 Patient was having difficulty putting on bra after showering and out of anger/frustration punched the mirror and breaking it. She feels pain, but reports FROM and no numbness or tingling PMHx: as noted above ROS: as noted SHx: Denies tobacco use; no alcohol use; no rec drugs Allergies: NKDA ROS: GENERAL/CONSTITUTIONAL: No fever or chills. No weakness. HEAD, EYES, EARS, NOSE AND THROAT: No change in vision. No ear pain or discharge. No sore throat. CARDIOVASCULAR: No chest pain or shortness of breath RESPIRATORY: No cough, wheezing, or hemoptysis. GASTROINTESTINAL: No nausea, vomiting, diarrhea or constipation. GENITOURINARY: No dysuria, frequency, or change in urination. MUSCULOSKELETAL: +hand pain SKIN: No rash NEUROLOGIC: No headache, vertigo, loss of consciousness, or change in strength/ sensation. ENDOCRINE: No increased thirst. No abnormal weight change HEMATOLOGIC/LYMPHATIC: No anemia, easy bleeding, or history of blood clots. ALLERGIC/IMMUNOLOGIC: No hives or skin allergy. PE: GENERAL: Awake, alert, and fully oriented, no acute distress HEAD: No signs of trauma, normocephalic, atraumatic EYES: EOMI, sclera anicteric, conjunctiva clear ENT: Auricles normal inspection, hearing grossly normal, nares patent, oropharynx clear without exudates. Moist mucosa NECK: Normal ROM, no lymphadenopathy LUNGS: No increased work of breathing, symmetrical chest rise, clear to auscultation bilaterally, no wheezes, crackles or rhonchi HEART: Regular rate and rhythm, normal S1 and S2, no murmurs, peripheral pulses 2+ and equal bilaterally. ABDOMEN: Soft, nondistended, nontender, normoactive bowel sounds. No guarding, no rebound. No masses. No CVAT EXTREMITIES: right hand with linear laceration on lateral aspect of 5th digit ~ 4cm, ttp and bleeding, 2+ ulnar, radial, brachial pulses, sensation intact, no bony ttp, no muscle or tendon involvement, 5/5 str NEUROLOGICAL: Cranial nerves II through XII grossly intact. Normal speech, normal gait, no focal sensorimotor deficits SKIN: Warm, Dry, normal turgor, no rashes or lesions noted Past History - Past Medical History Allergies/Adverse Reactions: Allergies Allergy/AdvReac Type Severity Reaction Status Date / Time shellfish derived Allergy Severe Difficulty Verified 06/15/18 14:24 Breathing Home Medications: Ambulatory Orders Aspirin [[employer] Aspirin] 81 mg PO DAILY #30 tablet. 04/28/17 Cyclobenzaprine HCl [Flexeril 10 mg] 10 mg PO HS PRN #10 tablet 06/15/18 Ibuprofen [Motrin -] 400 mg PO QID 06/15/18 Cephalexin Monohydrate [Keflex -] 500 mg PO BID #13 capsule 08/15/19 Asthma: Yes CVA: Yes (2016) COPD: No HTN: Yes Psychiatric Problems: Yes (anxiety) - Psycho Social/Smoking Cessation Hx Smoking History: Current some day smoker Have you smoked in the past 12 months: Yes Number of Cigarettes Smoked Daily: 1 'Breaking Loose' booklet given: 04/27/17 Hx Alcohol Use: No Drug/Substance Use Hx: No Substance Use Type: None Procedures - Laceration/Wound Repair Right Lateral Hand 5th digit Wound Length: 2.6 to 5.0 cm Wound Explored: clean, no foreign body present Wound's Depth, Shape: superficial, linear Irrigated w/ Saline: Yes Anesthesia: 1% Lidocaine Amount of Anesthetic (ccs): 2 Wound Repaired With: Sutures Suture Size/Type: 4:0 Number of Sutures: 6 Layer Closure: No Progress: 08/15/19 04:39 tolerated well bacitracin and kerlex applied Medical Decision Making - Medical Decision Making 08/15/19 04:36 23 y/o F with hx of HTN, asthma, CVA (04/2017) 2/2 drug abuse with residual LUE weakness presenting to ED with right hand laceration. VSS, AF. PE notable for linear lac on lateral aspect of right pinky finger without tendon or muscle involvement -XR hand/wrist -lac repair -tdap, keflex 08/15/19 04:37 XR negative with no fx or foreign body 6 sutures placed patient comfortable with plan to DC and take keflex and return to ED in 6-7 days for suture removal Discharge - Discharge Information Problems reviewed: Yes Clinical Impression/Diagnosis: Hand laceration Qualifiers: Encounter type: initial encounter Foreign body presence: without foreign body Laterality: right Qualified Code(s): S61.411A - Laceration without foreign body of right hand, initial encounter Condition: Improved Disposition: HOME - Additional Discharge Information Prescriptions: Cephalexin Monohydrate [Keflex -] 500 mg PO BID #13 capsule - Follow up/Referral Referrals: Abilio Ward MD [Primary Care Provider] - - Patient Discharge Instructions Patient Printed Discharge Instructions: DI for Laceration Repair -- Finger Additional Instructions: Return to ED if new or worsening concerns including redness, pus, drainage, fevers Please take keflex antibiotics twice a day for 7 days You may take tylenol 500mg every 6 hours or motrin 600mg every 6 hours for pain control Please return to the ED in 7 days for suture removal on ThursdayAugust 22 - Post Discharge Activity
[2019-08-15 03:03] VITALS: BP 141/99; PULSE 82; TEMP 98; BMI 25.3
[2019-08-15] MEDS ORDERED: DIPHTH,PERTUSS(ACELL),TET 0.5 ML DISP.SYRIN IM ONE (04:08)
[2019-08-15] MEDS ORDERED: CEPHALEXIN MONOHYDRATE 500 MG CAPSULE (UD) PO ONE (04:10)
[2019-08-15] MEDS ORDERED: CEPHALEXIN MONOHYDRATE 500 MG CAPSULE (UD) ONE (04:12)
== END 2019-08-15 04:33 | disposition home or self-care (01) ==
LOC: JER 02:10
PROC: 3E0234Z Introduction of Serum, Toxoid and Vaccine into Muscle, Percutaneous Approach (ICD-10-PCS; principal; 2019-08-15)
PROC: 0HQFXZZ Repair Right Hand Skin, External Approach (ICD-10-PCS; 2019-08-15)
DX: S61.411A Laceration without foreign body of right hand, initial encounter (principal); W25.XXXA Contact with sharp glass, initial encounter; Y93.89 Activity, other specified; Y92.032 Bedroom in apartment as the place of occurrence of the external cause; Y99.8 Other external cause status; I10 Essential (primary) hypertension; J45.909 Unspecified asthma, uncomplicated; F41.9 Anxiety disorder, unspecified; I69.834 Monoplegia of upper limb following other cerebrovascular disease affecting left non-dominant side; Z91.013 Allergy to seafood
CPT/HCPCS: 73110-TC-RT-FY; 73130-TC-RT-FY; 90715; 99281-25